=== PATIENT | female | born 1960 | race Caucasian/White ===

== ENCOUNTER → 2017-02-23 | Day surgery (SDC) | payer OTHER ==
[~2017-02-23] VITALS: Ht 162.6 cm; Wt 108.9 kg
[~2017-02-23] MED LIST: BECL8.7A5 INH; CHOL200025 PO; LEVO750T39 PO; LISI10TA PO; METR500T19 PO; MULT-666 PO; OXYC1TAB24 PO; POLY17PO6 PO; Sodium Chloride LOK Flush 10 mL Syringe IV PRN; fentaNYL-PF 50 mCg/mL 2 mL Inj IVPUSH PRN
[2017-02-23 09:28] VITALS: BP 122/72; PULSE 82; RESP 16; O2SAT 93
[2017-02-23] MEDS: 0.9% Sodium Chloride 1,000 ML IV PRN ×2 (09:36→10:07)
[2017-02-23 10:42] VITALS: BP 115/61; PULSE 78; RESP 15; O2SAT 95
[2017-02-23 10:52] VITALS: BP 113/71; PULSE 82; RESP 15; O2SAT 94
[2017-02-23 11:02] VITALS: BP 109/71; PULSE 90; RESP 15; O2SAT 98
--- NOTE | 2017-02-23 11:20 | ENDO ---
[address] [address] ENDOSCOPY PROCEDURE PATIENT: SHELTON JENKINS : 1960 MR#: [id number] ADMIT: 02/23/2017 JOB ID: [id number] DATE OF SERVICE: 02/23/2017 PROCEDURE PERFORMED: Colonoscopy. INDICATIONS: Patient with personal history of colon polyps. ASA CLASSIFICATION: The patient's ASA classification is II. MALLAMPATI SCORE: Mallampati score was 2. MEDICATIONS: 1. Versed 5 mg. 2. Fentanyl 100 mcg. INSTRUMENT USED: [id number]. PREPARATION QUALITY: Good. PROCEDURE DETAILS: After informed consent was obtained, the patient was brought into the GI suite, where she was placed on oxygen via nasal cannula and monitored with continuous pulse oximeter, telemetry and blood pressure monitoring. A time-out was performed. Then, she was placed in the left lateral decubitus position and medications were administered for sedation. Digital rectal exam was performed which was unremarkable. The colonoscope was then inserted into the rectum and advanced under direct visualization to the cecum, which was identified by the presence of the ileocecal valve and appendiceal orifice. Once the cecum was reached, the colonoscope was withdrawn back into the rectum, as the mucosa and lumen were examined. In the rectum, retroflexion was performed. Following retroflexion, remaining air in the rectum was suctioned, and procedure was completed. FINDINGS: 1. In the transverse colon there was an approximately 4 mm sessile polyp that was removed with a cold snare. 2. In the ascending colon there was an approximately 4 mm sessile polyp that was removed with a cold snare. IMPRESSION: 1. Ascending colon polyp. 2. Transverse colon polyp. RECOMMENDATIONS: Repeat colonoscopy in five years. COMPLICATIONS: None. ESTIMATED BLOOD LOSS: Less than 5 mL.
--- NOTE | 2017-02-28 10:31 | PATH ---
SURGICAL PATHOLOGY Attending Physician:Екатерина Bertrand CASE STATUS: Signed Out PATIENT NAME: SHELTON JENKINS PID: [id number] : 1960 DATE COLLECTED:02/23/2017 21:02 SPECIMEN: 1: Colon, Polyp 2: Colon, Polyp CLINICAL HISTORY: 1). TRANSVERSE POLYP X 1 2). ASCENDING POLYP X 1 FINAL DIAGNOSIS: 1. Transverse Colon Polyp, Biopsy: Hyperplastic polyp. Additional step sections examined. 2. Ascending Colon Polyp, Biopsy: Serrated polyp, favor sessile serrated adenoma. Additional step sections examined. ICD10: K63.5 GROSS DESCRIPTION: The specimen is received in two formalin filled containers labeled with the patient's name. 1). The specimen is labeled "trans" and consists of a 0.2 x 0.2 x 0.2 CM portion of tissue which is entirely submitted in cassette 1A. 2). The specimen is labeled "ascend" and consists of 2 extremely tiny portions of tissue which aggregate to less than 0.1 CM. The specimen is entirely submitted in cassette 2A. 02/23/2017UT ICD-9 CODES: CPT CODES: 1: 43504 2: 12077 Electronically Signed Out Benson Rangel MD, Ph.D. [facility] Pathology [facility] [address], [place] [address] Technical component performed at [facility], [address], [place], [address]
== END | disposition home or self-care (01) ==
LOC: END 00:30
PROVIDERS: ATTEND Internal Medicine Gastroenterology
DX: Z12.11 Encounter for screening for malignant neoplasm of colon (principal); Z86.010 Personal history of colon polyps; D12.2 Benign neoplasm of ascending colon
CPT/HCPCS: 45385; G0500; J2250; J3010; J7030